=== PATIENT | female | born 1970 | race Two or more races ===

== ENCOUNTER 2020-02-11 13:15 | Emergency (ER) | payer MEDICAID ==
[~2020-02-11] VITALS: Ht 160 cm; Wt 47.0 kg
[2020-02-11 13:21] VITALS: BP 113/64
[2020-02-11] MEDS ORDERED: IBUPROFEN 600MG TABLET PO ONE (15:45)
== END 2020-02-11 17:20 | disposition home or self-care (01) ==
LOC: ER 13:15
DX: M54.5 Low back pain (principal); M54.2 Cervicalgia; Z98.890 Other specified postprocedural states
CPT/HCPCS: 72040; 72100; 99284